=== PATIENT | male | born 1955 | race Caucasian/White ===

== ENCOUNTER 2016-12-05 08:44 | Day surgery (SDC) | payer OTHER ==
[~2016-12-05 08:44] MED LIST: Lidocaine 2% 5 ML SDV ONE; Propofol 200 MG/20 ML SDV ONE; fentaNYL 100 MCG/2 ML SDV ONE
[2016-12-05] MEDS ORDERED: Lactated Ringers 1,000 ML IV SCH ×2 (09:00→11:45)
--- NOTE | 2016-12-05 09:32 | PCM.PREANE ---
Preanesthetic Assessment - Anesthesia/Transfusion/Family Hx Anesthesia History: Prior Anesthesia Without Reaction Family History of Anesthesia Reaction: No Transfusion History: No Prior Transfusion(s) Intubation History: Unknown - Review of Systems General: No Symptoms Pulmonary: No Symptoms Cardiovascular: No Symptoms Gastrointestinal: No Symptoms, Other (h/o colon polyps) Neurological: No Symptoms Other: Reports: None - Physical Assessment O2 Sat by Pulse Oximetry: 96 Respiratory Rate: 16 Vital Signs: Last Vital Signs Temp 36.5 C 12/05/16 09:11 Pulse 66 12/05/16 09:11 Resp 16 12/05/16 09:11 BP 150/90 H 12/05/16 09:11 Pulse Ox 96 12/05/16 09:11 Height: 1.73 m Weight: 96.162 kg ASA Class: 2 Mental Status: Alert & Oriented x3 Airway Class: Mallampati = 2 Dentition: Reports: Normal Dentition Thyro-Mental Finger Breadths: 3 Mouth Opening Finger Breadths: 3 ROM/Head Extension: Full Lungs: Clear to Auscultation, Normal Respiratory Effort Cardiovascular: Regular Rate, Regular Rhythm - Allergies Allergies/Adverse Reactions: Allergies Allergy/AdvReac Type Severity Reaction Status Date / Time No Known Allergies Allergy Verified 11/28/16 14:10 - Blood Blood Available: No - Anesthesia Plan Pre-Op Medication Ordered: None - Acknowledgements Anesthesia Type Planned: MAC Pt an Appropriate Candidate for the Planned Anesthesia: Yes Alternatives and Risks of Anesthesia Discussed w Pt/Guardian: Yes Pt/Guardian Understands and Agrees with Anesthesia Plan: Yes PreAnesthesia Questionnaire Cardiovascular History: Reports: Hypertension Respiratory History: Reports: Other (See Below) Other Respiratory History: possible sleep apnea Gastrointestinal History: Reports: Colon Polyp (6 years ago) Musculoskeletal History: Reports: Osteoarthritis Other Musculoskeletal History: knee pain (states "needs total knee") - Past Surgical History Head Surgeries/Procedures: Reports: None HEENT Surgical History: Reports: LASIK GI Surgical History: Reports: Colonoscopy (x2 last one 6 years ago), Hernia, Inguinal - SUBSTANCE USE Smoking Status *Q: Never Smoker Recreational Drug Use History: No - HOME MEDS Home Medications: Home Meds Chlorthalidone 25 mg PO DAILY 11/28/16 [History] Lisinopril 20 mg PO DAILY 11/28/16 [History] traMADol HCl [Tramadol HCl] 50 mg PO ASDIRECTED PRN 11/28/16 [History] - CURRENT (IN HOUSE) MEDS Current Meds: Current Medications Lactated Ringer's (Ringers, Lactated) 1,000 mls @ 125 mls/hr IV ASDIRECTED KEVIN Last Admin: 12/05/16 09:10 Dose: 125 mls/hr Discontinued Medications Fentanyl (Sublimaze) Confirm Administered Dose 100 mcg .ROUTE .STK-MED ONE Stop: 12/05/16 07:34 Lidocaine (Xylocaine-Mpf 2%) Confirm Administered Dose 5 ml .ROUTE .STK-MED ONE Stop: 12/05/16 07:34 Propofol (Diprivan 20 Ml) Confirm Administered Dose 400 mg .ROUTE .STK-MED ONE Stop: 12/05/16 07:34
[2016-12-05] MEDS ORDERED: Glycopyrrolate 0.2 MG/ML SDV ONE ×2 (11:12→11:21)
--- NOTE | 2016-12-05 11:47 | PCM.OPNOTE ---
- General Post-Op/Procedure Note Date of Surgery/Procedure: 12/05/16 Operative Procedure(s): Colonoscopy Pre Op Diagnosis: Personal history of colon polyps Post-Op Diagnosis: No evidence of neoplasia Anesthesia Technique: MAC (ASA II) Primary Surgeon: Darío Akins [place] Folder: Kirsten Vásquez Condition: Good Free Text/Narrative:: Dictation [id number] CPT CODE 99975
[2016-12-05 13:16] VITALS: BP 106/60
--- NOTE | 2016-12-06 09:29 | OR ---
RAUL: Darío Akins M.D. DATE OF PROCEDURE: 12/05/2016 OPERATION PERFORMED: Colonoscopy. ANESTHESIA: MAC. ASA CLASSIFICATION: II. PREOPERATIVE DIAGNOSIS: Personal history of colon polyps. POSTOPERATIVE DIAGNOSIS: No evidence of neoplasia. DESCRIPTION OF PROCEDURE: The patient was taken to the endoscopy room and positioned on the endoscopy table in the left lateral decubitus position. Time-out was called for appropriate identification of the patient and procedure. Monitored anesthesia care was provided. The colonoscope was inserted into the rectum and advanced with moderate difficulty to the cecum. The cecum was identified by internal and external landmarks and pressure. Despite multiple maneuvers, I was never able to retroflex the colonoscope in the cecum. The colonoscope was then straightened and slowly withdrawn. The cecum, ascending colon, hepatic flexure, transverse colon, splenic flexure, descending colon, sigmoid colon, and rectum showed no tumors, polyps, diverticula, or angiodysplastic changes. Once the colonoscope was withdrawn to the rectum, it was retroflexed to visualize the anal orifice from above. Again, no tumors or polyps were seen and there were no acute hemorrhoidal changes. The colonoscope was straightened, the rectum aspirated, and the colonoscope removed. The patient tolerated the procedure well and was taken to recovery room in stable condition. GERONIMO / SAMSON /[id number]
== END 2016-12-05 12:22 | disposition home or self-care (01) ==
LOC: MW.SDS 08:44
PROVIDERS: ATTEND Surgery
DX: Z12.11 Encounter for screening for malignant neoplasm of colon (principal); Z87.19 Personal history of other diseases of the digestive system; Z80.0 Family history of malignant neoplasm of digestive organs; I10 Essential (primary) hypertension; M19.90 Unspecified osteoarthritis, unspecified site; Z86.19 Personal history of other infectious and parasitic diseases; Z79.899 Other long term (current) drug therapy; Z98.890 Other specified postprocedural states
CPT/HCPCS: 45378; J3010; J7120; 00810; J2704

== ENCOUNTER 2016-12-15 06:39 | Day surgery (SDC) | payer OTHER ==
[~2016-12-15 06:39] MED LIST changes: +Lactated Ringers 1,000 ML IV SCH; -Lidocaine 2% 5 ML SDV ONE; -Propofol 200 MG/20 ML SDV ONE; +ceFAZolin 2 GM in Premix Bag 1 BAG IV SCH; -fentaNYL 100 MCG/2 ML SDV ONE
[2016-12-15] MEDS ORDERED: Succinylcholine/Normal Saline 200 MG/10 ML Syringe ONE (06:47)
[2016-12-15] MEDS ORDERED: Lidocaine 2% 5 ML SDV ONE (06:47)
[2016-12-15] MEDS ORDERED: Rocuronium 10 MG/ML 10 ML Syringe ONE (06:47)
[2016-12-15] MEDS ORDERED: Ondansetron 4 MG/2 ML SDV ONE (06:47)
[2016-12-15] MEDS ORDERED: fentaNYL 100 MCG/2 ML SDV ONE (06:48)
[2016-12-15] MEDS ORDERED: Midazolam 1 MG/ML 2 ML SDV ONE (06:48)
[2016-12-15] MEDS ORDERED: Propofol 200 MG/20 ML SDV ONE (06:48)
[2016-12-15] MEDS ORDERED: ceFAZolin 1 GM Vial ONE ×2 (06:58→07:51)
[2016-12-15] MEDS ORDERED: Bupivacaine 0.5% 10 ML SDV ONE (06:59)
--- NOTE | 2016-12-15 07:30 | PCM.PREANE ---
Preanesthetic Assessment - Anesthesia/Transfusion/Family Hx Anesthesia History: Prior Anesthesia Without Reaction Family History of Anesthesia Reaction: No Transfusion History: Prior Transfusion Reaction Intubation History: Unknown - Review of Systems General: No Symptoms Pulmonary: No Symptoms Cardiovascular: No Symptoms Gastrointestinal: No Symptoms Neurological: No Symptoms - Physical Assessment NPO Status Date: 12/14/16 O2 Sat by Pulse Oximetry: 97 Respiratory Rate: 16 Vital Signs: Last Vital Signs Temp 36 C 12/15/16 06:44 Pulse 54 L 12/15/16 06:44 Resp 16 12/15/16 06:44 BP 156/82 H 12/15/16 06:44 Pulse Ox 97 12/15/16 06:44 Height: 1.73 m Weight: 96.162 kg ASA Class: 2 Mental Status: Alert & Oriented x3 Airway Class: Mallampati = 1 Dentition: Reports: Normal Dentition ROM/Head Extension: Full Lungs: Clear to Auscultation, Normal Respiratory Effort Cardiovascular: Regular Rate, Regular Rhythm - Allergies Allergies/Adverse Reactions: Allergies Allergy/AdvReac Type Severity Reaction Status Date / Time No Known Allergies Allergy Verified 11/28/16 14:10 - Anesthesia Plan Pre-Op Medication Ordered: None - Acknowledgements Anesthesia Type Planned: General Anesthesia Pt an Appropriate Candidate for the Planned Anesthesia: Yes Alternatives and Risks of Anesthesia Discussed w Pt/Guardian: Yes Pt/Guardian Understands and Agrees with Anesthesia Plan: Yes PreAnesthesia Questionnaire HEENT History: Reports: None Cardiovascular History: Reports: Hypertension Respiratory History: Reports: Other (See Below) Other Respiratory History: possible sleep apnea Gastrointestinal History: Reports: Colon Polyp Musculoskeletal History: Reports: Other (See Below) Other Musculoskeletal History: rt knee pain Endocrine/Metabolic History: Reports: Obesity/BMI 30+ - Past Surgical History Head Surgeries/Procedures: Reports: None HEENT Surgical History: Reports: LASIK GI Surgical History: Reports: Colonoscopy, Hernia, Inguinal - SUBSTANCE USE Smoking Status *Q: Never Smoker Recreational Drug Use History: No - HOME MEDS Home Medications: Home Meds Chlorthalidone 25 mg PO DAILY 11/28/16 [History] Lisinopril 20 mg PO DAILY 11/28/16 [History] traMADol HCl [Tramadol HCl] 50 mg PO ASDIRECTED PRN 11/28/16 [History] valACYclovir [Valtrex] 500 mg PO ASDIRECTED PRN 12/13/16 [History] - CURRENT (IN HOUSE) MEDS Current Meds: Current Medications Cefazolin Sodium/Dextrose 2 gm (/ Premix) 50 mls @ 100 mls/hr IV ONETIME KEVIN Lactated Ringer's (Ringers, Lactated) 1,000 mls @ 125 mls/hr IV ASDIRECTED KEVIN Last Admin: 12/15/16 06:50 Dose: 125 mls/hr Discontinued Medications Bupivacaine HCl (Sensorcaine-Mpf 0.5%) Confirm Administered Dose 10 ml .ROUTE .STK-MED ONE Stop: 12/15/16 07:00 Cefazolin Sodium (Ancef) Confirm Administered Dose 1 gm .ROUTE .STK-MED ONE Stop: 12/15/16 06:59 Fentanyl (Sublimaze) Confirm Administered Dose 200 mcg .ROUTE .STK-MED ONE Stop: 12/15/16 06:49 Lidocaine (Xylocaine-Mpf 2%) Confirm Administered Dose 5 ml .ROUTE .STK-MED ONE Stop: 12/15/16 06:48 Midazolam HCl (Versed 1 Mg/Ml) Confirm Administered Dose 2 mg .ROUTE .STK-MED ONE Stop: 12/15/16 06:49 Ondansetron HCl (Zofran) Confirm Administered Dose 4 mg .ROUTE .STK-MED ONE Stop: 12/15/16 06:48 Propofol (Diprivan 20 Ml) Confirm Administered Dose 200 mg .ROUTE .STK-MED ONE Stop: 12/15/16 06:49 Rocuronium [place] (Zemuron) Confirm Administered Dose 100 mg .ROUTE .STK-MED ONE Stop: 12/15/16 06:48 Succinylcholine Chloride (Succinylcholine In Ns Pf) Confirm Administered Dose 200 mg .ROUTE .STK-MED ONE Stop: 12/15/16 06:48
[2016-12-15] MEDS ORDERED: Sodium Chloride 0.9% 20 ML ONE (07:51)
[2016-12-15] MEDS ORDERED: ePHEDrine 50 MG/ML SDV ONE (07:56)
[2016-12-15] MEDS ORDERED: fentaNYL 100 MCG/2 ML SDV IVPUSH PRN (08:17)
[2016-12-15] MEDS ORDERED: Morphine 10 MG/ML Syringe IVPUSH PRN (08:48)
[2016-12-15] MEDS ORDERED: Acetaminophen/HYDROcodone 325-5 MG Tab PO PRN (08:48)
--- NOTE | 2016-12-15 08:51 | PCM.OPNOTE ---
- General Post-Op/Procedure Note Date of Surgery/Procedure: 12/15/16 Operative Procedure(s): Repair incarcerated umbilical hernia with 4.3 cm Ventralex mesh Pre Op Diagnosis: Incarcerated umbilical hernia Post-Op Diagnosis: Same Anesthesia Technique: General ET Tube (ASA II) Primary Surgeon: Darío Akins Dedicated Driver: Bridget Vásquez Condition: Good Free Text/Narrative:: Dictation [id number]
[2016-12-15] MEDS ORDERED: Lactated Ringers 1,000 ML IV SCH (09:00)
--- NOTE | 2016-12-15 09:14 | OR ---
SURGEON: Darío Akins M.D. DATE OF PROCEDURE: 12/15/2016 OPERATION PERFORMED: Repair of incarcerated umbilical hernia with 4.3 cm Ventralex mesh. WEB PROJECT MANAGER: RICKY Cavanaugh student. ANESTHESIA: General endotracheal. ASA CLASSIFICATION: II. PREOPERATIVE DIAGNOSIS: Incarcerated umbilical hernia. POSTOPERATIVE DIAGNOSIS: Incarcerated umbilical hernia. ESTIMATED BLOOD LOSS: 10 mL. INTRAOPERATIVE FLUID REPLACEMENT: 1200 mL crystalloid. DESCRIPTION OF PROCEDURE: The patient was taken to the operating room and placed on the operating table in the supine position. Time-out was called for appropriate identification of the patient and procedure. Following satisfactory attainment of general endotracheal anesthesia, the abdomen was prepped with DuraPrep solution. Sterile drapes were applied. The hernia incision was marked out skirting to the right around the umbilicus. This was infiltrated with 8 mL of 0.5% Marcaine solution. The skin incision was made and deepened through the subcutaneous tissue obtaining hemostasis with the use of electrocautery. There was incarcerated preperitoneal fat. This was circumferentially dissected and dropped into the preperitoneal space. The defect was approximately 1.5 cm in diameter. A 4.3 cm Ventralex mesh was brought to the operating table and soaked in 1% Ancef solution. The Ventralex was then placed in an underlay technique and secured with multiple interrupted horizontal mattress 0 Ethibond sutures. All sutures were placed under direct vision and held with hemostats until the final suture had been placed. Once the sutures had all been placed and tied, the patient was given a Valsalva maneuver to 40 cm of water. The repair was solid. The overlying fascia was then reapproximated with interrupted 0 Ethibond. The wound was inspected for hemostasis and no other bleeding was noted. The subcutaneous tissue was closed with 3-0 Polysorb and the skin with subcuticular 4-0 Monocryl. Steri-Strips were placed over the skin, which was then dressed with a sterile Tegaderm pad. Sponge, needle, and instrument counts were all correct. The patient tolerated the procedure well. Following emergence from anesthesia and extubation, the patient was taken to recovery room in stable condition. GERONIMO / SAMSON /[id number]
[2016-12-15 10:07] VITALS: BP 122/68
--- NOTE | 2016-12-15 10:12 | PCM.POSTAN ---
POST ANESTHESIA ASSESSMENT - MENTAL STATUS Mental Status: Alert, Oriented - RESPIRATORY Respiratory Status: Respiratory Rate WNL, Airway Patent, O2 Saturation Stable - CARDIOVASCULAR CV Status: Pulse Rate WNL, Blood Pressure Stable - GASTROINTESTINAL GI Status: No Symptoms - POST OP HYDRATION Hydration Status: Adequate & Stable
--- NOTE | 2016-12-15 10:14 | PCM48HPAN ---
Post Anesthesia Note - EVALUATION WITHIN 48HRS OF ANESTHETIC Vital Signs in Normal Range: Yes Patient Participated in Evaluation: Yes Respiratory Function Stable: Yes Airway Patent: Yes Cardiovascular Function Stable: Yes Hydration Status Stable: Yes Pain Control Satisfactory: Yes Nausea and Vomiting Control Satisfactory: Yes Mental Status Recovered: Yes
== END 2016-12-15 11:28 | disposition home or self-care (01) ==
LOC: MW.SDS 06:39
PROVIDERS: ATTEND Surgery
DX: K42.0 Umbilical hernia with obstruction, without gangrene (principal); I10 Essential (primary) hypertension; Z86.010 Personal history of colon polyps; Z86.19 Personal history of other infectious and parasitic diseases; Z79.899 Other long term (current) drug therapy; Z98.890 Other specified postprocedural states
CPT/HCPCS: 49587; C1781; J0690; J2250; J2405; J3010; J7120; 00750; J2704

== ENCOUNTER 2019-10-12 15:48 | Emergency (ER) | payer BC ==
[2019-10-12] MEDS ORDERED: Sodium Chloride 0.9% 1,000 ML IV ONE ×2 (16:05→17:14)
--- NOTE | 2019-10-12 16:09 | EDM.PDOC ---
ED HPI GENERAL MEDICAL PROBLEM - General Stated Complaint: FEEL UNWELL/WORD CONFUSION Time Seen by Provider: 10/12/19 15:50 Source of Information: Reports: Patient - History of Present Illness INITIAL COMMENTS - FREE TEXT/NARRATIVE: 64-year-old male with a history of hypertension, diabetes previously on metformin but now considered prediabetic who is presenting with 3 days of word finding difficulty. He first noticed it 3 days ago at breakfast. He feels like maybe it is a tiny bit better today compared to when it started. He notes that he has to stall and make a joke off in order to come up with a word. He denies dizziness he denies lightheadedness he denies chest pain he denies palpitations he denies prior history of similar symptoms. He denies focal weakness or other neurologic symptoms. Patient notes that over the last few weeks he has had more exertional dyspnea but denies exertional chest pain. He denies fevers chills or cough no exacerbating or alleviating factors radiation or other associated symptoms. - Related Data Allergies Allergy/AdvReac Type Severity Reaction Status Date / Time No Known Allergies Allergy Verified 10/12/19 16:32 Home Meds: Home Meds Chlorthalidone 25 mg PO DAILY 11/28/16 [History] Lisinopril 20 mg PO DAILY 11/28/16 [History] Celecoxib 100 mg PO DAILY 10/12/19 [History] Past Medical History HEENT History: Reports: None Cardiovascular History: Reports: Hypertension Respiratory History: Reports: Other (See Below) Other Respiratory History: possible sleep apnea Gastrointestinal History: Reports: Colon Polyp Musculoskeletal History: Reports: Osteoarthritis Other Musculoskeletal History: knee pain (states "needs total knee") Endocrine/Metabolic History: Reports: Obesity/BMI 30+ - Past Surgical History Head Surgeries/Procedures: Reports: None HEENT Surgical History: Reports: [facility] GI Surgical History: Reports: Colonoscopy, Hernia, Inguinal ED ROS GENERAL - Review of Systems Review Of Systems: See Below Free Text/Narrative/Comment: General: No fever. Skin: No rash. Eyes: No vision problems. ENT: No sore throat. Neck: No neck stiffness. Respiratory: Per HPI Cardiac: No chest pain. Gastrointestinal: No nausea, vomiting or abdominal pain. Urinary: No dysuria. Musculoskeletal: No myalgias/arthralgias. Neurologic: Per HPI ED EXAM, GENERAL - Physical Exam Exam: See Below Free Text/Narrative:: General Appearance: No acute distress, appears comfortable Skin: No rash HEENT: Normocephalic/atraumatic, sclera anicteric, mucous membranes moist Neck: Normal range of motion Chest and Lungs: Bilateral breath sounds, clear to auscultation Cardiovascular: Regular rate and rhythm, no murmur Abdomen: Soft, non-tender Back: Normal Musculoskeletal: No edema or tenderness Neurologic: Awake and alert, cranial nerves III through XI intact bilaterally, strength grossly intact, sensation grossly intact, [id number] intact bilaterally, normal gait, intermittent word finding difficulty/mild aphasia and stuttering of speech no dysarthria Psychiatric: Appropriate, cooperative EKG INTERPRETATION EKG Date: 10/12/19 Time: 16:35 Rhythm: NSR Rate (Beats/Min): 62 EKG Interpretation Comments: Normal sinus rhythm at a rate of 62 minimally biphasic T waves in the lateral leads. No ST elevations or depression no findings of acute ischemia intervals unremarkable. Course - Vital Signs Last Recorded V/S: Last Vital Signs Temp 97.0 F 10/12/19 16:00 Pulse 79 10/12/19 16:00 Resp 16 10/12/19 16:00 BP 116/67 10/12/19 16:00 Pulse Ox 95 10/12/19 16:00 - Orders/Labs/Meds Orders: Active Orders 24 hr Category Date Time Status Sodium Chloride 0.9% [Normal Saline] 1,000 ml Med 10/12/19 17:14 Active IV .Bolus Medication Orders Sodium Chloride (Normal Saline) 1,000 mls @ 999 mls/hr IV .Bolus ONE Stop: 10/12/19 18:14 Last Admin: 10/12/19 17:34 Dose: 999 mls/hr Documented by: JEROME Labs: Laboratory Tests 10/12/19 10/12/19 10/12/19 Range/Units 15:55 16:00 16:00 WBC 12.22 H (4.0-11.0) K/uL RBC 4.62 (4.50-5.90) M/uL Hgb 14.4 (13.0-17.0) g/dL Hct 42.7 (38.0-50.0) % MCV 92.4 (80.0-98.0) fL MCH 31.2 (27.0-32.0) pg MCHC 33.7 (31.0-37.0) g/dL RDW Std Deviation 41.8 (28.0-62.0) fl RDW Coeff of Ahsan 12 (11.0-15.0) % Plt Count 357 (150-400) K/uL MPV 9.80 (7.40-12.00) fL Neut % (Auto) 54.3 (48.0-80.0) % Lymph % (Auto) 32.3 (16.0-40.0) % [place] % (Auto) 6.8 (0.0-15.0) % Eos % (Auto) 5.8 (0.0-7.0) % Baso % (Auto) 0.8 (0.0-1.5) % Neut # (Auto) 6.6 H (1.4-5.7) K/uL Lymph # (Auto) 4.0 H (0.6-2.4) K/uL [place] # (Auto) 0.8 (0.0-0.8) K/uL Eos # (Auto) 0.7 (0.0-0.7) K/uL Baso # (Auto) 0.1 (0.0-0.1) K/uL Nucleated RBC % 0.0 /100WBC Nucleated RBCs # 0 K/uL Sodium 130 L (136-148) mmol/L Potassium 4.0 (3.5-5.1) mmol/L Chloride 93 L (98-107) mmol/L Carbon Dioxide 26.8 (21.0-32.0) mmol/L BUN 29 H (7.0-18.0) mg/dL Creatinine 1.7 H (0.8-1.3) mg/dL Est Cr Clr Drug Dosing TNP Estimated GFR (MDRD) 40.8 ml/min Glucose 466 H (74-106) mg/dL POC Glucose 371 H (60-110) mg/dL Calcium 9.9 (8.5-10.1) mg/dL Total Bilirubin 0.6 (0.2-1.0) mg/dL AST 20 (15-37) IU/L ALT 29 (14-63) IU/L Alkaline Phosphatase 103 (46-116) U/L Troponin I <0.050 (0.000-0.056) ng/mL B-Natriuretic Peptide (<100) PG/ML Total Protein 8.9 H (6.4-8.2) g/dL Albumin 4.1 (3.4-5.0) g/dL Globulin 4.8 H (2.6-4.0) g/dL Albumin/Globulin Ratio 0.9 (0.9-1.6) 10/12/19 Range/Units 16:00 WBC (4.0-11.0) K/uL RBC (4.50-5.90) M/uL Hgb (13.0-17.0) g/dL Hct (38.0-50.0) % MCV (80.0-98.0) fL MCH (27.0-32.0) pg MCHC (31.0-37.0) g/dL RDW Std Deviation (28.0-62.0) fl RDW Coeff of Ahsan (11.0-15.0) % Plt Count (150-400) K/uL MPV (7.40-12.00) fL Neut % (Auto) (48.0-80.0) % Lymph % (Auto) (16.0-40.0) % [place] % (Auto) (0.0-15.0) % Eos % (Auto) (0.0-7.0) % Baso % (Auto) (0.0-1.5) % Neut # (Auto) (1.4-5.7) K/uL Lymph # (Auto) (0.6-2.4) K/uL [place] # (Auto) (0.0-0.8) K/uL Eos # (Auto) (0.0-0.7) K/uL Baso # (Auto) (0.0-0.1) K/uL Nucleated RBC % /100WBC Nucleated RBCs # K/uL Sodium (136-148) mmol/L Potassium (3.5-5.1) mmol/L Chloride (98-107) mmol/L Carbon Dioxide (21.0-32.0) mmol/L BUN (7.0-18.0) mg/dL Creatinine (0.8-1.3) mg/dL Est Cr Clr Drug Dosing Estimated GFR (MDRD) ml/min Glucose (74-106) mg/dL POC Glucose (60-110) mg/dL Calcium (8.5-10.1) mg/dL Total Bilirubin (0.2-1.0) mg/dL AST (15-37) IU/L ALT (14-63) IU/L Alkaline Phosphatase (46-116) U/L Troponin I (0.000-0.056) ng/mL B-Natriuretic Peptide 24 (<100) PG/ML Total Protein (6.4-8.2) g/dL Albumin (3.4-5.0) g/dL Globulin (2.6-4.0) g/dL Albumin/Globulin Ratio (0.9-1.6) Meds: Medications Generic Name Dose Route Start Last Admin Trade Name Freq PRN Reason Stop Dose Admin Sodium Chloride 1,000 mls @ 999 mls/hr 10/12/19 17:14 10/12/19 17:34 Normal Saline IV 10/12/19 18:14 999 mls/hr .Bolus ONE Administration Discontinued Medications Generic Name Dose Route Start Last Admin Trade Name Freq PRN Reason Stop Dose Admin Sodium Chloride 1,000 mls @ 999 mls/hr 10/12/19 16:05 10/12/19 16:34 Normal Saline IV 10/12/19 17:05 999 mls/hr .Bolus ONE Administration Iopamidol 100 ml 10/12/19 16:34 10/12/19 16:34 Isovue-370 (76%) IVPUSH 10/12/19 16:35 100 ml ONETIME ONE Administration Departure - Departure Time of Disposition: 18:01 Disposition: DC/Tfer to Acute Hospital 02 Condition: Good Clinical Impression: Aphasia, Hyperglycemia - Discharge Information *PRESCRIPTION DRUG MONITORING PROGRAM REVIEWED*: Not Applicable *COPY OF PRESCRIPTION DRUG MONITORING REPORT IN PATIENT MARILYN: Not Applicable Referrals: PCP,Unknown [Primary Care Provider] - Sepsis Event Note (ED) - Focused Exam Vital Signs: Vital Signs Temp Pulse Resp BP Pulse Ox 10/12/19 16:00 97.0 F 79 16 116/67 95 - My Orders Last 24 Hours: My Active Orders 10/12/19 17:14 Sodium Chloride 0.9% [Normal Saline] 1,000 ml IV .Bolus - Assessment/Plan Last 24 Hours: My Active Orders 10/12/19 17:14 Sodium Chloride 0.9% [Normal Saline] 1,000 ml IV .Bolus Assessment:: 64-year-old male presented with signs and symptoms that would be most concerning for stroke. Patient is out of the window of any type of directed treatment given 3 days since last known well for this reason initial stroke code called by nursing was canceled. Formal NIH is pending, CT, CTA, EKG, troponin, chest x- ray given exertional dyspnea no arrhythmias a consideration new CHF is a consideration BNP is pending as well no concern for infectious process no signs of meningitis or encephalitis. May need to discuss with neurology depending on what initial evaluation demonstrates. Formal NIHSS score is 1 (mild aphasia) 1715: Noncontrast CT scan of the brain was negative for acute bleed per my preliminary interpretation formal radiology interpretation notes no acute process. We await imaging of the angios. Patient's labs are notable for a very minimal acute kidney injury but the difference is really quite small as in June his creatinine was 1.3. GFR has dropped from 55-40. Patient with a pseudohyponatremia as well. It corrects to normal at 139. Given patient's significant hyperglycemia the lack of being on any insulin or oral hypoglycemics will give an additional liter of fluid for hyperglycemia continue to await the remainder of the work-up. CXR also unremarkable heart upper limits of normal but no edema or effusions. 1800: I do have persistent concern for TIA versus small stroke. CT and CTA without any large vessel occlusion. Given his persistent concern his multiple risk factors patient was agreeable to transfer and patient was discussed with Dr. Kendrick and Dr. Mc of my not ER and neurology respectively. The patient has been accepted for transfer. Dr. Mc recommends against thrombolytics at this time. The recommendation was for BLS transport. I communicated this to the patient. Unfortunately we do not have ground transport for at least 5 hours. In addition patient is currently refusing ambulance transport. His friend Don who is an EMT is going to come pick him up and drive him to [place]. I would strongly prefer transport via ambulance. However, patient declines this. Given the significant delay that waiting for a ground ambulance would cause as well as this refusal will allow patient to go with his friend. Will repeat accucheck prior to transfer.
--- NOTE | 2019-10-12 16:31 | CT ---
INDICATION: Stroke code. Word finding difficulty. TECHNIQUE: CT head without IV contrast. FINDINGS: No acute intracranial hemorrhage, edema, or mass effect. Mild cerebral and cerebellar atrophy. Remainder negative. IMPRESSION: No acute intracranial disease. Chronic intracranial findings as described above. Please note that all CT scans at this facility use dose modulation, iterative reconstruction, and/or weight-based dosing when appropriate to reduce radiation dose to as low as reasonably achievable. Dictated by Carlos Ram MD @ Oct 12 2019 4:27PM Signed by Dr. Carlos Ram @ Oct 12 2019 4:30PM
[2019-10-12] MEDS ORDERED: Iopamidol 755 Mg/ML 100 ML Bottle IVPUSH ONE (16:34)
[2019-10-12 16:36] LABS: BLOOD UREA NITROGEN,BUN 29 mg/dL (7.0-18.0); CARBON DIOXIDE,CO2 26.8 mmol/L (21.0-32.0); CHLORIDE,CL 93 mmol/L (98-107); GLUCOSE RANDOM 466 mg/dL (74-106); SODIUM,NA 130 mmol/L (136-148)
--- NOTE | 2019-10-12 16:41 | CR ---
INDICATION: Shortness of breath TECHNIQUE: Chest 2 views. COMPARISON: None FINDINGS: Cardiomediastinal silhouette: Top normal size cardiac silhouette. Lungs and pleural spaces: Low lung volumes. No focal consolidation or pulmonary edema. No pleural effusion or pneumothorax. Bones and soft tissues: Degenerative changes of the lower thoracic spine. IMPRESSION: No acute pulmonary process. Dictated by Milena Grover MD @ 10/12/2019 4:40:20 PM Dictated by: Milena Grover MD @ 10/12/2019 16:40:37 (Electronically Signed)
[2019-10-12 16:45] VITALS: BP 116/67; PULSE 79
--- NOTE | 2019-10-12 17:18 | CT ---
INDICATION: Acute stroke. TECHNIQUE: High-resolution axial CT images acquired through the head and neck following rapid intravenous administration of iodinated contrast. Multiplanar MIPS of cranial and cervical vasculature performed. COMPARISON: Noncontrast head CT 10/12/2019. FINDINGS: CTA head: There is normal filling of the intracranial vasculature; i.e. there is no large vessel occlusion or significant intracranial stenosis. There is no cerebral aneurysm or evidence for vascular malformation. CTA neck: There is marked tortuosity of the carotid arteries. There is no stenosis or evidence for dissection. The vertebral arteries are widely patent. IMPRESSION: Marked tortuosity of the carotid arteries. Otherwise unremarkable CTA head and neck. Clemente Velázquez MD [employer] [facility] Please note that all CT scans at this facility use dose modulation, iterative reconstruction, and/or weight-based dosing when appropriate to reduce radiation dose to as low as reasonably achievable. Dictated by Clemente Velázquez MD @ Oct 12 2019 10:38PM Signed by Dr. Clemente Velázquez @ Oct 12 2019 10:42PM
--- NOTE | 2019-10-12 17:18 | CT ---
INDICATION: Acute stroke. TECHNIQUE: High-resolution axial CT images acquired through the head and neck following rapid intravenous administration of iodinated contrast. Multiplanar MIPS of cranial and cervical vasculature performed. COMPARISON: Noncontrast head CT 10/12/2019. FINDINGS: CTA head: There is normal filling of the intracranial vasculature; i.e. there is no large vessel occlusion or significant intracranial stenosis. There is no cerebral aneurysm or evidence for vascular malformation. CTA neck: There is marked tortuosity of the carotid arteries. There is no stenosis or evidence for dissection. The vertebral arteries are widely patent. IMPRESSION: Marked tortuosity of the carotid arteries. Otherwise unremarkable CTA head and neck. Clemente Velázquez MD [facility] [employer] [facility] Please note that all CT scans at this facility use dose modulation, iterative reconstruction, and/or weight-based dosing when appropriate to reduce radiation dose to as low as reasonably achievable. Dictated by Clemente Velázquez MD @ Oct 12 2019 10:42PM Signed by Dr. Clemente Velázquez @ Oct 12 2019 10:42PM
== END 2019-10-12 18:34 ==
LOC: MW.ED 15:48
DX: R47.01 Aphasia (principal); I10 Essential (primary) hypertension; R73.9 Hyperglycemia, unspecified; E66.9 Obesity, unspecified; M19.90 Unspecified osteoarthritis, unspecified site; Z79.82 Long term (current) use of aspirin; Z79.84 Long term (current) use of oral hypoglycemic drugs; Z79.899 Other long term (current) drug therapy
CPT/HCPCS: 70450; 70496; 70498; 71046; 80053; 82962; 83880; 84484; 85025; 93005; 96360; 96361; 99285; J7030; Q9967; 99284

== ENCOUNTER 2021-07-20 12:18 | Observation (INO) | payer BC, MEDICARE ==
[2021-07-20] MEDS ORDERED: Sodium Chloride 0.9% 2.5 ML Syringe FLUSH PRN (12:28)
[2021-07-20] MEDS ORDERED: Sodium Chloride 0.9% 10 ML Syringe FLUSH PRN (12:28)
[2021-07-20 13:20] LABS: POTASSIUM,K 3.9 mmol/L (3.5-5.1)
[2021-07-20] MEDS ORDERED: Sodium Chloride 0.9% 1,000 ML IV ONE (13:24)
[2021-07-20] MEDS ORDERED: Iopamidol 755 MG/ML 500 ML Multipack Bottle IVPUSH STA (13:56)
[2021-07-20] MEDS ORDERED: Acetaminophen 325 MG Tab PO PRN (17:47)
[2021-07-20] MEDS ORDERED: atorvaSTATin 40 MG Tab PO ONE (17:52)
[2021-07-20] MEDS ORDERED: 50% Dextrose in Water 50 ML Syringe IVPUSH PRN (17:55)
[2021-07-20] MEDS ORDERED: Glucagon,Human Recombinant 1 MG Vial IM PRN (17:55)
[2021-07-20] MEDS ORDERED: Lactated Ringers 1,000 ML IV SCH (18:00)
[2021-07-20] MEDS: Aspirin 81 MG Tab.Chew PO SCH (18:15)
[2021-07-20 18:27] LABS: HEMOGLOBIN A1C 8.4 %
[2021-07-21 06:38] LABS: BLOOD UREA NITROGEN,BUN 26 mg/dL (7.0-18.0); CARBON DIOXIDE,CO2 27.1 mmol/L (21.0-32.0); CHLORIDE,CL 98 mmol/L (98-107); GLUCOSE RANDOM 168 mg/dL (74-106); POTASSIUM,K 3.9 mmol/L (3.5-5.1); SODIUM,NA 134 mmol/L (136-148)
[2021-07-21] MEDS: Insulin Aspart 100 Units/ML 3 ML Pen SUBCUT SCH ×2 (09:06→11:30)
[2021-07-21] MEDS: Aspirin 81 MG Tab.Chew PO SCH (09:06)
[2021-07-21 11:40] VITALS: BP 144/87; PULSE 55
[2021-07-21] MEDS ORDERED: atorvaSTATin 40 MG Tab PO SCH (21:00)
== END 2021-07-21 13:20 | disposition home or self-care (01) ==
LOC: MW.ED 12:18 → MW.MS 16:23
PROVIDERS: ADMIT Student in an Organized Health Care Education/Training Program; ATTEND Student in an Organized Health Care Education/Training Program
DX: R47.1 Dysarthria and anarthria (principal); I10 Essential (primary) hypertension; E11.9 Type 2 diabetes mellitus without complications; E66.9 Obesity, unspecified; M19.90 Unspecified osteoarthritis, unspecified site; Z68.30 Body mass index [BMI] 30.0-30.9, adult; Z98.890 Other specified postprocedural states; Z20.822 Contact with and (suspected) exposure to COVID-19; Z79.84 Long term (current) use of oral hypoglycemic drugs; Z79.4 Long term (current) use of insulin; Z79.82 Long term (current) use of aspirin; Z79.899 Other long term (current) drug therapy
CPT/HCPCS: 36415; 70450; 70450-26; 70496; 70496-26; 70498; 70498-26; 70551; 70551-26; 71045; 71045-26; 80048; 80053; 80061; 82947; 83036; 84484; 85025; 93306; 99284; 99285-25; A9270-GY; G0378; J1815-GY; J3490; J7030; Q9967; U0002

== ENCOUNTER 2023-03-18 02:21 | Emergency (ER) | payer MEDICARE ==
[2023-03-18 02:55] VITALS: BP 124/73; PULSE 83
== END 2023-03-18 02:53 | disposition home or self-care (01) ==
LOC: MW.ED 02:21
DX: Z02.89 Encounter for other administrative examinations (principal); I10 Essential (primary) hypertension; E78.00 Pure hypercholesterolemia, unspecified; M19.90 Unspecified osteoarthritis, unspecified site; E11.9 Type 2 diabetes mellitus without complications; E66.9 Obesity, unspecified; Z68.31 Body mass index [BMI] 31.0-31.9, adult; Z79.84 Long term (current) use of oral hypoglycemic drugs; Z79.82 Long term (current) use of aspirin; Z79.4 Long term (current) use of insulin; Z79.899 Other long term (current) drug therapy
CPT/HCPCS: 82947; 99282; 99283

== ENCOUNTER 2024-11-06 12:50 | Emergency (ER) | payer MEDICARE ==
[2024-11-06] MEDS: Sodium Chloride 0.9% 2.5 ML Syringe FLUSH PRN (14:13)
[2024-11-06] MEDS: Sodium Chloride 0.9% 10 ML Syringe FLUSH PRN (14:13)
[2024-11-06 14:24] LABS: APPEARANCE,URINE CLEAR; GLUCOSE,URINE >=1000 mg/dL (NEGATIVE); OCCULT BLOOD,URINE NEGATIVE (NEGATIVE)
[2024-11-06 14:31] LABS: BASOPHILS ABSOLUTE AUTO 0.11 K/uL (0.00-0.20); BASOPHILS PERCENT AUTO 1.1 % (0.0-1.0); EOSINOPHILS ABSOLUTE AUTO 0.39 K/uL (0.00-0.45); EOSINOPHILS PERCENT AUTO 4.0 % (0.0-6.0); IMMATURE GRAN ABSOLUTE AUTO 0.04 K/uL (0.00-0.05); IMMATURE GRAN PERCENT AUTO 0.4 % (0.0-0.4); LYMPHOCYTES ABSOLUTE AUTO 2.60 K/uL (1.00-4.80); LYMPHOCYTES PERCENT AUTO 26.4 % (24.0-44.0); MEAN PLATELET VOLUME 9.4 fL (9.4-12.4); MONOCYTES ABSOLUTE AUTO 0.77 K/uL (0.00-0.80); MONOCYTES PERCENT AUTO 7.8 % (0.0-8.0); NEUTROPHILS ABSOLUTE AUTO 5.94 K/uL (1.80-7.70); NEUTROPHILS PERCENT AUTO 60.3 % (41.0-71.0); NRBC ABSOLUTE 0.00 K/uL (0.00-0.02); NRBC PERCENT 0.0 /100WBC (0.0-0.2); PLATELET COUNT,PLT 326 K/uL (150-400); RED BLOOD CELL COUNT 4.49 M/uL (4.52-5.90); WHITE BLOOD CELL COUNT,WBC 9.85 K/uL (3.9-11.3)
[2024-11-06 15:03] LABS: A/G RATIO 0.7 (0.9-1.6); ALANINE AMINOTRANSFERASE,ALT 24 IU/L (14-63); ASPARTATE AMNIOTRANSFERASE,AST 33 IU/L (15-37); BILIRUBIN TOTAL 1.1 mg/dL (0.2-1.0); BLOOD UREA NITROGEN,BUN 30 mg/dL (7.0-18.0); CARBON DIOXIDE,CO2 27.1 mmol/L (21.0-32.0); CHLORIDE,CL 92 mmol/L (98-107); CREATININE 1.5 mg/dL (0.8-1.3); GLUCOSE RANDOM 449 mg/dL (74-106); POTASSIUM,K 4.2 mmol/L (3.5-5.1); PROTEIN TOTAL,TP 8.2 g/dL (6.4-8.2); SODIUM,NA 127 mmol/L (136-148)
[2024-11-06 15:06] LABS: ESTIMATED GFR 50 mL/min (>60)
[2024-11-06] MEDS ORDERED: 50% Dextrose in Water 50 ML Syringe IVPUSH PRN ×2 (15:07→16:19)
[2024-11-06] MEDS: Magnesium Sulfate 2 GM/50 mL 2 GM in Premix Bag 1 BAG IV ONE (15:16)
[2024-11-06] MEDS: Insulin Regular, Human 100 Units/ML 10 ML Vial IVPUSH ONE ×2 (15:17→16:27)
[2024-11-06 15:25] VITALS: BP 135/64
[2024-11-06 18:09] VITALS: PULSE 57
== END 2024-11-06 18:07 | disposition home or self-care (01) ==
LOC: MW.ED 12:50
DX: E11.65 Type 2 diabetes mellitus with hyperglycemia (principal); I10 Essential (primary) hypertension; Z79.84 Long term (current) use of oral hypoglycemic drugs; Z79.899 Other long term (current) drug therapy
CPT/HCPCS: 36415; 80053; 81003; 82947; 83735; 84132; 85025; 96361; 96365; 99284; J3475; J7030; J1815-GY

== ENCOUNTER 2024-11-08 11:36 | Emergency (ER) | payer MEDICARE ==
[2024-11-08] MEDS ORDERED: Sodium Chloride 0.9% 2.5 ML Syringe FLUSH PRN (12:09)
[2024-11-08] MEDS ORDERED: Sodium Chloride 0.9% 10 ML Syringe FLUSH PRN (12:09)
[2024-11-08 12:18] LABS: BASOPHILS ABSOLUTE AUTO 0.11 K/uL (0.00-0.20); BASOPHILS PERCENT AUTO 1.0 % (0.0-1.0); EOSINOPHILS ABSOLUTE AUTO 0.29 K/uL (0.00-0.45); EOSINOPHILS PERCENT AUTO 2.7 % (0.0-6.0); IMMATURE GRAN ABSOLUTE AUTO 0.04 K/uL (0.00-0.05); IMMATURE GRAN PERCENT AUTO 0.4 % (0.0-0.4); LYMPHOCYTES ABSOLUTE AUTO 3.19 K/uL (1.00-4.80); LYMPHOCYTES PERCENT AUTO 30.0 % (24.0-44.0); MEAN PLATELET VOLUME 9.1 fL (9.4-12.4); MONOCYTES ABSOLUTE AUTO 1.00 K/uL (0.00-0.80); MONOCYTES PERCENT AUTO 9.4 % (0.0-8.0); NEUTROPHILS ABSOLUTE AUTO 6.01 K/uL (1.80-7.70); NEUTROPHILS PERCENT AUTO 56.5 % (41.0-71.0); NRBC ABSOLUTE 0.00 K/uL (0.00-0.02); NRBC PERCENT 0.0 /100WBC (0.0-0.2); PLATELET COUNT,PLT 330 K/uL (150-400); RED BLOOD CELL COUNT 4.52 M/uL (4.52-5.90); WHITE BLOOD CELL COUNT,WBC 10.64 K/uL (3.9-11.3)
[2024-11-08 12:21] LABS: BASE EXCESS VENOUS 5.2 (-2.0-3.0); BICARBONATE,VENOUS 30.0 mEq/L (22-29); PCO2 VENOUS 43.0 mmHG (41-51); PH,VENOUS 7.45 (7.32-7.43); PO2 VENOUS 21.0 mmHG (35-45)
[2024-11-08 12:28] LABS: INR < 0.93 (0.86-1.11); PTT,PARTIAL THROMBOPLSTIN TIME 23.7 SEC (23.9-30.7)
[2024-11-08 12:39] LABS: A/G RATIO 0.7 (0.9-1.6); ALANINE AMINOTRANSFERASE,ALT 20 IU/L (14-63); BILIRUBIN TOTAL 1.2 mg/dL (0.2-1.0); BLOOD UREA NITROGEN,BUN 27 mg/dL (7.0-18.0); CARBON DIOXIDE,CO2 29.6 mmol/L (21.0-32.0); CHLORIDE,CL 93 mmol/L (98-107); CREATINE KINASE,CK 88 U/L (26-308); CREATININE 1.6 mg/dL (0.8-1.3); GLUCOSE RANDOM 318 mg/dL (74-106); POTASSIUM,K 4.5 mmol/L (3.5-5.1); PROTEIN TOTAL,TP 8.3 g/dL (6.4-8.2); SODIUM,NA 129 mmol/L (136-148)
[2024-11-08 12:40] LABS: APPEARANCE,URINE CLEAR; GLUCOSE,URINE >=1000 mg/dL (NEGATIVE); OCCULT BLOOD,URINE TRACE-INTACT (NEGATIVE)
[2024-11-08 12:41] LABS: ESTIMATED GFR 46 mL/min (>60)
[2024-11-08 12:43] LABS: ASPARTATE AMNIOTRANSFERASE,AST 20 IU/L (15-37)
[2024-11-08 12:49] LABS: AMPHETAMINES SCREEN, URINE NEGATIVE (CUTOFF=500); BUPRENORPHINE SCREEN,URINE NEGATIVE (CUTOFF=10); METHADONE SCREEN, URINE NEGATIVE (CUTOFF=200); METHAMPHETAMINES SCREEN, URINE NEGATIVE (CUTOFF=500); OXYCODONE SCREEN,URINE NEGATIVE (CUT0FF=100); PCP SCREEN,URINE NEGATIVE (CUTOFF=25); THC SCREEN,URINE 20 NG/ML NEGATIVE (CUTOFF=50)
[2024-11-08 12:50] LABS: LACTIC ACID 1.3 mmol/L (0.4-2.0)
[2024-11-08] MEDS: Iopamidol 755 MG/ML 500 ML Multipack Bottle IVPUSH STA (12:51)
[2024-11-08] MEDS ORDERED: 50% Dextrose in Water 50 ML Syringe IVPUSH PRN (12:56)
[2024-11-08 13:01] LABS: EPITHELIAL CELLS,URINE RARE (NONE-FEW)
[2024-11-08] MEDS: Insulin Regular, Human 100 Units/ML 10 ML Vial IVPUSH ONE (13:16)
[2024-11-08] MEDS: Magnesium Sulfate 2 GM/50 mL 2 GM in Premix Bag 1 BAG IV ONE (13:17)
[2024-11-08 15:01] VITALS: BP 128/89; PULSE 56
== END 2024-11-08 15:24 ==
LOC: MW.ED 11:36
DX: E11.65 Type 2 diabetes mellitus with hyperglycemia (principal); R47.01 Aphasia; E86.0 Dehydration; I10 Essential (primary) hypertension; F17.200 Nicotine dependence, unspecified, uncomplicated; Z79.84 Long term (current) use of oral hypoglycemic drugs; Z79.899 Other long term (current) drug therapy
CPT/HCPCS: 36415; 70450; 70496; 70498; 71045; 80053; 80305; 80307; 81001; 82140; 82550; 82803; 82947; 83605; 83735; 84484; 85025; 85610; 85730; 93005; 96361; 96365; 99285; A9270; J1815; J3475; J7030; Q9967

== ENCOUNTER 2024-11-09 20:22 | Emergency (ER) | payer MEDICARE ==
[2024-11-09] MEDS ORDERED: Sodium Chloride 0.9% 10 ML Syringe FLUSH PRN (22:55)
[2024-11-09] MEDS ORDERED: Sodium Chloride 0.9% 2.5 ML Syringe FLUSH PRN (22:55)
[2024-11-09 23:40] LABS: BLOOD UREA NITROGEN,BUN 24.0 mg/dL (7.0-18.0); CARBON DIOXIDE,CO2 26.8 mmol/L (21.0-32.0); CHLORIDE,CL 93.0 mmol/L (98-107); CREATININE 1.5 mg/dL (0.8-1.3); EST CRCL DRUG DOSING (CG) 44.97 mL/min; GLUCOSE RANDOM 315.0 mg/dL (74-106); POTASSIUM,K 3.5 mmol/L (3.5-5.1); SODIUM,NA 127.0 mmol/L (136-148)
[2024-11-09 23:42] LABS: ESTIMATED GFR 50.0 mL/min (>60)
[2024-11-10] MEDS: Insulin Regular, Human 100 Units/ML 10 ML Vial IVPUSH ONE ×2 (00:26→00:43)
[2024-11-10 01:47] VITALS: BP 122/79; PULSE 56
== END 2024-11-10 01:48 | disposition home or self-care (01) ==
LOC: MW.ED 20:22
DX: E11.65 Type 2 diabetes mellitus with hyperglycemia (principal); I10 Essential (primary) hypertension; Z79.84 Long term (current) use of oral hypoglycemic drugs; Z79.899 Other long term (current) drug therapy
CPT/HCPCS: 36415; 80048; 82947; 96360; 99284; J1815; J7030; 99283